=== PATIENT | male | born 1935 | race Caucasian/White ===

== ENCOUNTER 2018-12-01 19:11 | Inpatient (IN) | payer MEDICARE ==
[~2018-12-01] VITALS: Ht 172.7 cm; Wt 74.5 kg
[2018-12-01 20:07] LABS: Hematocrit 28.9 % (37.0-53.0); Hemoglobin 9.2 g/dL (13.5-17.5); Mean Corpuscular HGB 35.8 pg (26.0-34.0); Mean Corpuscular HGB Conc 31.8 g/dL (31.5-36.5); Mean Corpuscular Volume 113 fL (80-100); Mean Platelet Volume 9.7 fL (9.1-12.4); Platelet Count 176 K/mm3 (150-400); RDW Coefficient Variation 14.9 % (11.7-14.2); RDW Standard Deviation 61.6 fL (35.1-46.3); Red Blood Cell Count 2.57 M/mm3 (4.30-5.90); White Blood Cell Count 6.75 K/mm3 (4.00-11.30)
[2018-12-01] MEDS ORDERED: CEFD250S5 PO (20:24)
[2018-12-01] MEDS ORDERED: Nicoderm Cq1 EAC1 TD (20:25)
[2018-12-01 20:26] LABS: Alanine Aminotransfer (ALT/SGP 15 U/L (12-78); Albumin, Blood 1.5 g/dL (3.4-5.0); Albumin/Globulin Ratio 0.3 (0.8-1.8); Alk Phos 95 U/L (50-136); Anion Gap 14 mmol/L (6-16); Aspartate Aminotrans (AST/SGOT 13 U/L (12-37); Bilirubin, Total 0.5 mg/dL (0.1-1.0); Blood Urea Nitrogen 101 mg/dL (8-24); Bun/Creatinine Ratio 25.4 (12.0-20.0); CO2, Blood 17 mmol/L (21-32); Calcium, Blood 7.3 mg/dL (8.5-10.1); Chloride, Blood 113 mmol/L (98-108); Creatinine, Blood 3.98 mg/dL (0.60-1.20); Glomerular Filtration Rate 15 (60-); Glucose, Blood 88 mg/dL (70-99); Potassium, Blood 4.8 mmol/L (3.5-5.5); Sodium, Blood 144 mmol/L (136-145); Total Protein, Blood 6.5 g/dL (6.4-8.2); Troponin I <0.015 ng/mL (0.000-0.040)
[2018-12-01] MEDS ORDERED: MORPHINE SU2 MG/1 M1 IV (20:26)
[2018-12-01] MEDS ORDERED: VIT1CAPS12 PO (20:27)
[2018-12-01 20:38] LABS: BAND PERCENT MAN 15 % (0-8); BASOPHILS PERCENT MAN 0 % (0-2); EOSINOPHILS PERCENT MAN 0 % (0-6); LYMPHOCYTES ABSOLUTE MAN 0.74 K/mm3 (0.84-5.20); LYMPHOCYTES PERCENT MAN 11 % (21-46); MONOCYTES ABSOLUTE MAN 0.27 K/mm3 (0.16-1.47); MONOCYTES PERCENT MAN 4 % (4-13); MYELOCYTE ABSOLUTE MAN 0.06 K/mm3 (0.00-0.00); MYELOCYTE PERCENT MAN 1 % (0-0); NEUTROPHILS ABSOLUTE MAN 5.67 K/mm3 (1.96-9.15); SEG NEUTROPHILS PERCENT MAN 69 % (41-73); TOTAL CELLS COUNTED 100
--- NOTE | 2018-12-01 20:57 | NUR ---
Initial Visit: Palliative Care Consult for goals of care. Pt is A&Ox4 and reports generalized pain. Unable to give intensity or any specific location. FLACC score is 2/10. Pt's family present during visit. Son Elvis, Daughters Mary, and Whitney. Whitney reports that she is POA [phone]. Pt is hard of hearing and family answers most of questions during visit. Pt and family appear overwhelmed. Whitney explains some of the background. Pt decided to live with other family members in [place] and a few days ago she received a call stating Pt's health was declining. Pt's appetite had decreased, he was lethargic, and had a fall. Whitney reports driving down to [place] and Pt was admitted to local hospital. Family was told that Pt's heart and kidnies were failing and the hospital did not have a quarter supervisor or an echo to determine severity. Hospital offered for Pt to be transfered to hospital in [place] but the hospital there was full. Local hospital offered discharge with hospice and family accepted. Pt decided he wanted a second opinion and family drove Pt back home to [place] and to [facility]. Whitney reports having contact with Yari at [facility]. Family and Pt report they would like a full work up for a second opinion. Pt states that if his illness is not to severe then he would like to be treated. He also reports that if his illness has reached end stage then he will consider hospice. Plan: F/U with Pt and family for therapeutic visits. Also need to establish palliative and karnofsky scores, along with Pt's ADLs. Will establish further goals of care as needed.
[2018-12-01] MEDS ORDERED: ONDA4ODT SL (21:21)
[2018-12-01] MEDS ORDERED: Chloraseptic177 ML PO (21:21)
[2018-12-01 21:43] LABS: Percent Saturation 38.8 % (20.0-50.0)
[2018-12-01 21:49] LABS: Magnesium, Blood 2.9 mg/dL (1.6-2.4)
[2018-12-01 22:45] LABS: Phosphorus, Blood 7.2 mg/dL (2.5-4.9)
[2018-12-01 23:02] LABS: Source, Urine Urostomy Bag
[2018-12-01 23:05] LABS: Bilirubin, Urine Neg (Neg); Blood, Urine 5+ (Neg); Glucose Qualitative, Urine Neg (Neg); Ketones, Urine Neg (Neg); Leukocyte Esterase, Urine 2+ (Neg); Nitrite, Urine Neg (Neg); Protein, Urine Neg (Neg); Urobilinogen, Urine NORM (Normal)
[2018-12-01 23:18] LABS: Appearance, Urine Hazy (Clear); Color, Urine Yellow (P-Yellow)
[2018-12-01 23:19] LABS: Amorphous Light (0-Heavy); Bacteria Few /hpf; Mucus Light (0-Heavy); Red Blood Cells, Urine 25-50 /hpf (0-2); Squamous Epithelial Cells Few /hpf (Few)
[2018-12-02 00:12] LABS: Source, Urine Catheter
[2018-12-02 00:19] LABS: Bilirubin, Urine Neg (Neg); Blood, Urine 4+ (Neg); Glucose Qualitative, Urine Neg (Neg); Ketones, Urine Neg (Neg); Leukocyte Esterase, Urine 1+ (Neg); Nitrite, Urine Neg (Neg); Protein, Urine Neg (Neg); Urobilinogen, Urine NORM (Normal)
[2018-12-02 00:28] LABS: Amorphous Light (0-Heavy); Appearance, Urine Hazy (Clear); Bacteria Few /hpf; Color, Urine Pale Yellow (P-Yellow); Granular Casts 25-50 /lpf (0); Squamous Epithelial Cells Not Seen /hpf (Few)
[2018-12-02 05:03] LABS: Hematocrit 35.5 % (37.0-53.0); Hemoglobin 11.3 g/dL (13.5-17.5); Mean Corpuscular HGB 35.2 pg (26.0-34.0); Mean Corpuscular HGB Conc 31.8 g/dL (31.5-36.5); Mean Corpuscular Volume 111 fL (80-100); Mean Platelet Volume 9.5 fL (9.1-12.4); Platelet Count 136 K/mm3 (150-400); RDW Coefficient Variation 14.8 % (11.7-14.2); RDW Standard Deviation 60.4 fL (35.1-46.3); Red Blood Cell Count 3.21 M/mm3 (4.30-5.90); White Blood Cell Count 4.75 K/mm3 (4.00-11.30)
[2018-12-02 05:40] LABS: Albumin, Blood 1.5 g/dL (3.4-5.0); Anion Gap 13 mmol/L (6-16); Blood Urea Nitrogen 99 mg/dL (8-24); Bun/Creatinine Ratio 24.3 (12.0-20.0); CO2, Blood 17 mmol/L (21-32); CPK Creatine Kinase 58 U/L (39-308); Calcium, Blood 7.3 mg/dL (8.5-10.1); Chloride, Blood 114 mmol/L (98-108); Creatinine, Blood 4.08 mg/dL (0.60-1.20); Glomerular Filtration Rate 15 (60-); Glucose, Blood 114 mg/dL (70-99); Magnesium, Blood 3.1 mg/dL (1.6-2.4); Phosphorus, Blood 7.4 mg/dL (2.5-4.9); Potassium, Blood 4.5 mmol/L (3.5-5.5); Sodium, Blood 144 mmol/L (136-145); Uric Acid, Blood 14.4 mg/dL (3.5-7.2)
--- NOTE | 2018-12-02 07:14 | NUR ---
SHIFT SUMMARY PT ADMITTED LAST NIGHT FOR CHF EXACERBATION. HE HAD BEEN DISCHARGED ON HOSPICE FROM A HOSPITAL IN [place] WHERE HE HAD BEEN DEALING WITH THE CHF, COMMUNITY ACQUIRED PNEUMONIA, AND SHARON, DISCHARGED THE MORNING OF THE AND ADMITTED HERE THE NIGHT OF THE FOR A SECOND OPINION, PER THE FAMILY. THEY WANT TO FIND OUT IF THE CHF AND SHARON ARE REVERSIBLE AT THIS POINT. PALLIATIVE CARE AND COOLEY CONSULTED IN ED. PT IS GENERALLY ORIENTED, SLEEPS EASILY BETWEEN CARES. FAMILY PRESENT IN THE ROOM. PT IS VERY WEAK, 2 ASSIST FOR POSITIONING. 24 HOUR URINE STARTED 12/02 AT 0020, WILL BE FINISHED 12/03 AT 0020. HIS INTAKE HAS BEEN POOR. FAMILY STATES HE HAS HAD VERY LITTLE INTAKE FOR ABOUT 5 DAYS, AND ALSO HAS NOT HAD A BM IN 4 DAYS OR SO. REPORT PASSED TO ONCOMING SHIFT. WILL CTM UNTIL PASS TO NEXT SHIFT.
--- NOTE | 2018-12-02 17:45 | NUR ---
SUMMARY 24 HOUR URINE COLLECTION CONTINUES. PATIENT HAS DENIED NEED FOR PAIN MEDICATION THROUGHOUT SHIFT. PATIENT REPORTS OCC. "LUNG PAIN " WITH DEEP BREATHING. PATIENT WITH MINIMAL PO INTAKE. OCC LOOSE SOUNDING COUGH-OATIENT DOES NOT COUGH UP SECRETIONS. FAMILY MEMBERS AT BEDSIDE MUCH OF SHIFT HANDY DEAN RN
--- NOTE | 2018-12-02 21:47 | NUR ---
IS SITTING 90 DEG IN BED.PILLOWS BEHIND TO SIT HIM FORWARD LIKE CHAIR.OFFERED PM CARE ITEMS AND TO ASSIST.
--- NOTE | 2018-12-02 22:30 | NUR ---
FRESH ICE ADDED FOR 24 HR URINE.STAYED ON ICE SINCE START OF MY SHIFT.
--- NOTE | 2018-12-03 00:35 | NUR ---
24 HOUR URINE DONE. SENT TO LAB WITH CHARGE NURSE ASSIST TO MAKE SURE DONE CORRECTLY.LAB REVIEWED AND APPROVED ALL LABLES AND ICE IS CORRECT FOR 24 HOUR URINE.
[2018-12-03 01:30] LABS: Protein, Urine Quantitative 16.8 mg/dL (0.0-11.9)
--- NOTE | 2018-12-03 04:18 | NUR ---
SHIFT SUMMARY: PT SLEEPING MOST OF SHIFT. 24 HOUR URINE COLLECTION COMPLETE. PT DECONDITIONED WITH POOR PO INTAKE. ON PUREE DIET. ASPIRATION PRECAUTIONS IN PLACE. PT REMAINED SITTING UP IN BED T/O SHIFT. NORMAL SINUS WITH PAC'S PER AIR POLLUTION CONTROL ENGINEER. COURSE LUNG SOUNDS HEARD UPON AUSCULATION. PT C/O OCCASIONAL PAIN WHEN TAKING DEEP BREATHS. CONTINUES TO HAVE 4+ PITTING EDEMA TO BLE. COMPRESSION STOCKINGS ON. 2 ASSIST FOR REPOSITIONING.
[2018-12-03 04:31] LABS: Hematocrit 30.2 % (37.0-53.0); Hemoglobin 9.6 g/dL (13.5-17.5)
[2018-12-03 04:54] LABS: Albumin, Blood 1.5 g/dL (3.4-5.0); Anion Gap 13 mmol/L (6-16); Blood Urea Nitrogen 119 mg/dL (8-24); Bun/Creatinine Ratio 27.4 (12.0-20.0); CO2, Blood 20 mmol/L (21-32); Calcium, Blood 7.5 mg/dL (8.5-10.1); Chloride, Blood 116 mmol/L (98-108); Creatinine, Blood 4.35 mg/dL (0.60-1.20); Glomerular Filtration Rate 14 (60-); Glucose, Blood 137 mg/dL (70-99); Magnesium, Blood 3.1 mg/dL (1.6-2.4); Potassium, Blood 5.1 mmol/L (3.5-5.5); Sodium, Blood 149 mmol/L (136-145)
[2018-12-03 05:03] LABS: Phosphorus, Blood 8.6 mg/dL (2.5-4.9)
--- NOTE | 2018-12-03 17:08 | NUR ---
SHIFT SUMMART PT AWAKE, CONFUSED, LEVELOCK, VISION IMPAIRMENT, DNR BAND RUE, TELE SB @ 53, DECONDITIONED, ASPIRATION PRECAUTIONS, PUREED DIET, LOW PO INTAKE, SPOONFULS OF WATER GIVEN T/O SHIFT. FAMILY AT BEDSIDE T/O SHIFT. STAND/TRANSFER, 2 PP MOD/MAX ASSIST. EDEMA ZEYAD FEET 4+, TEDS ON. NAUSEA TX X1 IN AM. MEDS CRUSHED IN APPLESAUCE. WCTM & TX PER EMAR UNTIL REPORT GIVEN TO ONCOMING SHANON RN.
[2018-12-04 04:48] LABS: BASOPHILS ABSOLUTE AUTO 0.01 K/mm3 (0.00-0.23); BASOPHILS PERCENT AUTO 0 % (0-2); EOSINOPHILS PERCENT AUTO 0 % (0-6); Hematocrit 32.2 % (37.0-53.0); Hemoglobin 10.2 g/dL (13.5-17.5); Mean Corpuscular HGB 34.6 pg (26.0-34.0); Mean Corpuscular HGB Conc 31.7 g/dL (31.5-36.5); Mean Corpuscular Volume 109 fL (80-100); Mean Platelet Volume 10.4 fL (9.1-12.4); Platelet Count 115 K/mm3 (150-400); RDW Coefficient Variation 14.6 % (11.7-14.2); RDW Standard Deviation 58.5 fL (35.1-46.3); Red Blood Cell Count 2.95 M/mm3 (4.30-5.90); White Blood Cell Count 4.88 K/mm3 (4.00-11.30)
[2018-12-04 05:11] LABS: Albumin, Blood 1.7 g/dL (3.4-5.0); Anion Gap 14 mmol/L (6-16); Blood Urea Nitrogen 139 mg/dL (8-24); CO2, Blood 19 mmol/L (21-32); Calcium, Blood 7.5 mg/dL (8.5-10.1); Chloride, Blood 116 mmol/L (98-108); Creatinine, Blood 4.64 mg/dL (0.60-1.20); Glomerular Filtration Rate 13 (60-); Glucose, Blood 138 mg/dL (70-99); Magnesium, Blood 3.5 mg/dL (1.6-2.4); Potassium, Blood 5.2 mmol/L (3.5-5.5); Sodium, Blood 149 mmol/L (136-145)
[2018-12-04 05:15] LABS: IMMATURE GRAN ABSOLUTE AUTO 0.06 K/mm3 (0.00-0.10); IMMATURE GRAN PERCENT AUTO 1 % (0-1); LYMPHOCYTES ABSOLUTE AUTO 0.67 K/mm3 (0.84-5.20); LYMPHOCYTES PERCENT AUTO 14 % (21-46); MONOCYTES ABSOLUTE AUTO 0.06 K/mm3 (0.16-1.47); MONOCYTES PERCENT AUTO 1 % (4-13); NEUTROPHILS ABSOLUTE AUTO 4.08 K/mm3 (1.96-9.15); NEUTROPHILS PERCENT AUTO 84 % (41-73)
--- NOTE | 2018-12-04 05:21 | NUR ---
SHIFT SUMMARY: PT RESTING MOST OF SHIFT. WHILE AWAKE, PT IS CONFUSED AND HOLLERS OUT AT TIMES. PT IS AWARE OF SURROUNDINGS AND FAMILY. TELE SHOWS SINUS BETHANY IN LOW 50'S. PT IS VOIDING IN URINAL. INCONTINENT ONCE. PT GIVEN A BEDBATH AND LINENS WERE CHANGED. ATTENDS IN PLACE. MEPILEX PLACED TO COCCYX WHERE A PRESSURE ULCER WAS NOTED. PHOTOS TAKEN. PUREED DIET, SWALLOWING PILLS CRUSHED IN PUDDING. HOB ELEVATED. NO N/V.
[2018-12-04 05:44] LABS: Phosphorus, Blood 8.7 mg/dL (2.5-4.9)
--- NOTE | 2018-12-04 07:36 | NUR ---
RECIEVED A CRITICAL PHOSPHORUS LAB VALUE OF 8.6. DR COOLEY NOTIFIED OF CRITICAL LAB AND OTHER LAB VALUES. DISCUSSED KIDNEY FUNCTION AND TOTAL URINE OUTPUT THROUGHOUT NIGHT. NEW ORDER FOR SURGICAL CONSULT FOR PERMCATH FOR HEMODIALYSIS. RN NOTIFIED DR MARION OF CONSULT AT APPROX 0748. FAMILY IS AWARE.
--- NOTE | 2018-12-04 17:57 | NUR ---
SHIFT SUMMARY PT A&OX2, CONFUSED, VSS, [place], DECREASED VISION. TELE DC'D, PT STILL SINUS BETHANY @ 50, HOSPITALIST AWARE. AWAITING PERMACATH INSERTION, PLAN IS FOR ICU MELT HOUSE CENTRIFUGAL OPERATOR TO PLACE TODAY; DIALYSIS IS SCHEDULED FOR TOMORROW AT 0900. PURPLE DNR BAND R WRIST. DYSPHAGIA PREC IN PLACE. MEDS CRUSHED, ADDED TO AMPHOJEL OR JELLO, PT DOES NOT LIKE APPLESAUCE. GERARD PO TODAY, DENIES N&V, SMALL BITES OF MECH SOFT AND TEASPOONS OF WATER/GRAPE JUICE GIVEN T/O SHIFT, ASSISTED AND ENC PT TO EAT BITES. VOIDING IN URINAL, ATTENDS ON, BUMEX GIVEN. WILL CTM & TX PER EMAR UNTIL REPORT GIVEN TO ONCOMING SHANON RN.
--- NOTE | 2018-12-04 19:18 | NUR ---
ASSISTED DR. GONZALEZ WITH DIALYSIS CATH IN ROOM 210. TIME OUT 1900. PLACED IN RIGHT IJ USING STERILE TECHNIQUE. TOLERATED WELL.
--- NOTE | 2018-12-05 03:42 | NUR ---
SHIFT SUMMARY: NEW DIALYSIS CATHETER PLACED IN BEGINNING OF SHIFT AT APPROX 1850. PT TOLERATED PROCEDURE WELL. PERMCATH FLUSHED WITH SODIUM CITRATE BY ICU MOTORBOAT MECHANIC INBOARD/OUTBOARDNORMA. PT REPOSITIONED T/O SHIFT. ATTENDS CHANGED PRN. MOD 2 PERSON ASSIST. PT CONFUSED AND VERY FATIGUED T/O NIGHT. PLAN IS FOR PT TO RECIEVE FIRST DIALYSIS TX THIS AM AT APPROX 0900.
[2018-12-05 04:43] LABS: Hematocrit 34.7 % (37.0-53.0)
[2018-12-05 05:22] LABS: Blood Urea Nitrogen 163 mg/dL (8-24); Bun/Creatinine Ratio 33.1 (12.0-20.0); Phosphorus, Blood 9.5 mg/dL (2.5-4.9)
[2018-12-05 05:30] LABS: Albumin, Blood 1.9 g/dL (3.4-5.0); Anion Gap 14 mmol/L (6-16); CO2, Blood 21 mmol/L (21-32); Calcium, Blood 7.4 mg/dL (8.5-10.1); Chloride, Blood 116 mmol/L (98-108); Creatinine, Blood 4.92 mg/dL (0.60-1.20); Glomerular Filtration Rate 12 (60-); Glucose, Blood 132 mg/dL (70-99); Magnesium, Blood 3.4 mg/dL (1.6-2.4); Potassium, Blood 5.5 mmol/L (3.5-5.5); Sodium, Blood 151 mmol/L (136-145)
[2018-12-05 07:08] LABS: ANTIGLOMERULAR BM AB 5 units (0-20)
--- NOTE | 2018-12-05 10:51 | NUR ---
DIALYSIS PT'S FAMILY WANTS TO WAIT 3 DIALYSIS TREATMENTS BEFORE DECIDING ON GETTING A PERMA CATH PLACED.
--- NOTE | 2018-12-05 11:15 | NUR ---
HD nurse, Gurwinder, requested that PC nurse visit with pt's family in the dialysis treatment room. Pt is currently sleeping and receiving dialysis at this time. Whitney reports he was discharged from a [facility] on hospice but on the way here he told his family that wanted to "get better." Jacques has five children, Whitney, one of his daughters, is his POA. Whitney is requesting that Jacques receive three days of HD. Her hope is that HD will allow Jacques to be more alert and oriented so that he can make the decision for himself whether or not he would like to have manager terminal dialysis. Whitney reports several family members have had renal issues and were cared for by hospice at EOL. Whitney is very clear that she does not want a permanent dialysis catheter placed at this time. Whitney states that Jacques's health has declined rapidly in the past few days. She reports that his oral intake has been very limited and that he has had trouble with nausea and difficulty swallowing. Explained decreased nutrition requirements when someone nears EOL. Family states they are aware that the HD may not help and Whitney states they will make a decision for Jacques if he is unable to after 3 days of HD. Whitney reports Dr. Danielle told the family that there was a small chance 25-30% per her report that HD would allow pt's kidneys to start functioning on their own again. Family members at bedside are hopeful for improvement but state that if temporary HD doesn't make a difference they are open to hospice care. Pamphlets given to pt's family on coping with the stresses of dialysis and considering comfort care. PC will continue to follow pt and family over the next few days.
--- NOTE | 2018-12-05 17:54 | NUR ---
SUMMARY PT IS VERY TIRED TODAY, REFUSING MEDICATIONS, FOOD AND WATER. PT WAS TAKEN TO DIALYSIS THIS AM. PALLIATAIVE CARE SPOKE WITH FAMILY REGARDING CARE. FAMILY WISHES TO TRY DIALYSIS USING HEMOCATH X3 DAYS BEFOR PLACEMENT OF PERMACATH TO SEE IF HIS CONDITION IMPROVES. PT IS NOT ORIENTED TO HIS SURROUNDINGS AND IS UNAWARE OF WHAT IS HAPPENING, HE EXPRESSES FRUSTRATION AND FALLS ASLEEP QUICKLY. FREQUENT ORAL CARE, ATTENDS CHANGES, AND Q2 TURNS PROVIDED. FREQUENT ROUNDING DONE DUE TO PT NOT BEING ABLT TO CALL FOR ASSISTANCE PRN. CALL LIGHT IS IN REACH.
--- NOTE | 2018-12-06 04:32 | NUR ---
NO SIG CHANGES DURING NIGHT. DID TAKE ORAL MEDICATED IN PUDDING AND TOLERATED WELL. REPOSITIONED FREQUENTLY T/O SHIFT. PLAN FOR DIALYSIS AGAIN TODAY. DID ATTEMPT TO SEND PROTEIN UR. LAB STATES WAS ORDERED FOR 24H, HOWEVER PT IS INCONTINENT AT TIMES. WILL PASS THIS ALONG IN REPORT TO UPDATE DR. COOLEY. CALL LIGHT IN REACH AND BED ALARM ON FOR SAFETY.
[2018-12-06 05:52] LABS: Hematocrit 31.9 % (37.0-53.0); Hemoglobin 10.4 g/dL (13.5-17.5)
[2018-12-06 05:56] LABS: HBSAG SCREEN Negative (Negative); HEP A AB, IGM Negative (Negative); HEP B CORE AB, IGM Negative (Negative); HEP C VIRUS AB <0.1 (0.0-0.9)
[2018-12-06 06:13] LABS: Albumin, Blood 1.8 g/dL (3.4-5.0); Anion Gap 7 mmol/L (6-16); Blood Urea Nitrogen 103 mg/dL (8-24); Bun/Creatinine Ratio 29.9 (12.0-20.0); CO2, Blood 29 mmol/L (21-32); Calcium, Blood 6.9 mg/dL (8.5-10.1); Chloride, Blood 109 mmol/L (98-108); Creatinine, Blood 3.44 mg/dL (0.60-1.20); Glomerular Filtration Rate 18 (60-); Glucose, Blood 94 mg/dL (70-99); Magnesium, Blood 2.6 mg/dL (1.6-2.4); Potassium, Blood 4.3 mmol/L (3.5-5.5); Sodium, Blood 145 mmol/L (136-145)
--- NOTE | 2018-12-06 15:00 | NUR ---
TRANSFER OF CARE PT TRANSFERRED TO ROOM 339. PT IS AWAKE, VSS. REPORT GIVEN TO ANA ROSA. FAMILY NOTIFIED AND IS AT THE BEDSIDE. ALL BELONGINGS AND MEDICATIONS WERE SENT WITH THE PT.
[2018-12-06 15:09] LABS: A/G RATIO 0.5 (0.7-1.7); ALBUMIN 1.8 g/dL (2.9-4.4); ALPHA-1-GLOBULIN 0.5 g/dL (0.0-0.4); ALPHA-2-GLOBULIN 0.8 g/dL (0.4-1.0); BETA GLOBULIN 0.9 g/dL (0.7-1.3); GAMMA GLOBULIN 2.2 g/dL (0.4-1.8); GLOBULIN, TOTAL 4.4 g/dL (2.2-3.9); IMMUNOGLOBULIN A, QN, SERUM 781 mg/dL (61-437); IMMUNOGLOBULIN G, QN, SERUM 1776 mg/dL (700-1600); IMMUNOGLOBULIN M, QN, SERUM 89 mg/dL (15-143); M-SPIKE Not Observed g/dL (Not Observed); PROTEIN, TOTAL, SERUM 6.2 g/dL (6.0-8.5)
--- NOTE | 2018-12-06 15:29 | NUR ---
RECEIVED PATIENT FROM SURGICAL FLOOR W/REPORT FROM CHRISTINE ROSA. PATIENT ORIENTED TO ROOM.USES HEAD MOVEMENTS TO ANSWER QUESTIONS. RT JUGULAR CATHETER FOR DIALYSIS. LT A/C IV. LUNGS WHEEZEY UPPER, DIM LOWER. PALE ROSARIO IN COLOR. BL FEET EDEMA +2 TO +3. SHAYNE SPEAR ON. 2ND DAY OF DIALYSIS TODAY. HO-CHUNK. MULTIPLE RELATIVES IN ROOM. WILL CONTINUE TO MONITOR.
--- NOTE | 2018-12-06 18:13 | NUR ---
PATIENT ALERT. SEE EARLIER NOTE. COLOR NOT PALE ROSARIO. DOES RESPOND WITH ONE TO THREE WORD SENTENCES. HAS SOME OPEN SORES BUTTOCK. WILL USE CREAM AND MEPILEX. POOR APPETITE AND PER RELATIVES PATIENT HAS HAD POOR APPETITE FOR 8 MONTHS AND HAS BEEN "JUST SITTING ON RECLINER" FOR EIGHT MONTHS. WILL CONTINUE TO MONITOR.
[2018-12-07 04:12] LABS: Stool Occult Blood Guaiac 1 Neg (Neg); Stool Occult Blood Guaiac 2 Pos (Neg)
--- NOTE | 2018-12-07 05:03 | NUR ---
VSS, AFEBRILE, A/O TO SELF AND FAMILY, PRAIRIE BAND, INCONT, FRIABLE SKIN ON COCCYX COVERED BY MEPLEX, VERY POOR APPETITE, FAMILY AT THE BEDSIDE MOST OF THE TIME, PT SLEPT OVERNOC. NO COMPLAINTS.
[2018-12-07 05:27] LABS: Hematocrit 32.3 % (37.0-53.0); Hemoglobin 10.7 g/dL (13.5-17.5)
[2018-12-07 05:45] LABS: Anion Gap 8 mmol/L (6-16); Blood Urea Nitrogen 64 mg/dL (8-24); Bun/Creatinine Ratio 29.1 (12.0-20.0); CO2, Blood 31 mmol/L (21-32); Calcium, Blood 7.1 mg/dL (8.5-10.1); Chloride, Blood 107 mmol/L (98-108); Glomerular Filtration Rate 31 (60-); Glucose, Blood 93 mg/dL (70-99); Magnesium, Blood 2.3 mg/dL (1.6-2.4); Phosphorus, Blood 5.3 mg/dL (2.5-4.9); Potassium, Blood 4.1 mmol/L (3.5-5.5); Sodium, Blood 146 mmol/L (136-145)
[2018-12-07 06:04] LABS: Stool Occult Blood Guaiac 1 Neg (Neg)
--- NOTE | 2018-12-07 13:22 | NUR ---
BACK FROM DIALYSIS
--- NOTE | 2018-12-07 15:10 | NUR ---
PATIENT STILL SLEEPING POST DIALYSIS. APPEARS COMFORTABLE. RELATIVES IN ROOM. ADVISED RUNNING ABOUT 2 HOURS BEHIND AND MAY NOT BE IN TONIGHT. ADVISED WE WILL MAKE PATIENT NPO AFTER MIDNITE IN ANTICIPATION OF PERMACATH PLACEMENT.
--- NOTE | 2018-12-07 16:13 | NUR ---
Ethics consult order processed. Case conference with Palliative Care Nurse Brandi Mederos facilitated. Chart details and patient history reviewed. Concerns were recently voiced concerning a disparity between the patients previously expressed treatment wishes, and the medical course of therapy as directed by the principals family. This primarily revolved around the question of whether or not the principal would be amenable to renal management via dialysis if his cognitive faculties were intact and he could express his clinical preferences. Upon discussing the case and auditing the EMR it was discovered that this case has largely resolved itself due to the fact that the patient is reported to have recovered sufficient capacity to manage the decision himself. Dr Shahid clinical note intimates that Jacques has agreed to undergo permacath placement and proceed with hemodialysis. My recommendation would be for the Attending, the RN or a Palliative Care Nurse to follow up and provide advance directive education to the patient while he is lucid and have him complete and file a POLST so as to avoid future confusion. Thank you for this consult. Vasu Mac DMin
--- NOTE | 2018-12-07 19:26 | NUR ---
VSS, AFEBRILE, A/O TO SELF AND FAMILY, PT DISPLAYS A TINY SMEAR OF BLOOD FROM HIS PENIS IN HIS BRIEF. THIS BLOOD WAS DRIED, AND NO FURTHER BLEEDING WAS NOTED. PT DENIES PAIN/DISCOMFORT AT THIS TIME. FAMILY WAS CONCERNED BUT THERE APPEARS TO BE NO FURTHER BLEEDING AT THIS TIME. WILL CONTINUE TO MONITOR.
--- NOTE | 2018-12-08 04:54 | NUR ---
SAP ABAP PROGRAMMER SUMMARY NO ACUTE CHANGES THIS SHIFT. PT AAOX3, PLEASANT AND COOPERATIVE WITH CARE. PT ABLE TO HELP A LOT WITH TURNS AND CHANGES. PT STILL HAVING DARK BROWN LIQUID STOOL. INCONTINENT OF BOWEL AND BLADDER. NPO SINCE MIDNIGHT DUE TO PENDING PLACEMENT OF PERMACATH LATER TODAY. ASSISTED PT WITH MOUTH SWABS ON OCCASION. PT DENIES PAIN, SOB, N/V. VSS, WILL CONTINUE TO MONITOR.
[2018-12-08 05:27] LABS: Hematocrit 31.7 % (37.0-53.0); Hemoglobin 10.7 g/dL (13.5-17.5)
[2018-12-08 05:53] LABS: Anion Gap 11 mmol/L (6-16); Blood Urea Nitrogen 40 mg/dL (8-24); Bun/Creatinine Ratio 22.1 (12.0-20.0); CO2, Blood 29 mmol/L (21-32); Calcium, Blood 7.1 mg/dL (8.5-10.1); Chloride, Blood 100 mmol/L (98-108); Creatinine, Blood 1.81 mg/dL (0.60-1.20); Glomerular Filtration Rate 38 (60-); Glucose, Blood 88 mg/dL (70-99); Magnesium, Blood 2.1 mg/dL (1.6-2.4); Phosphorus, Blood 4.6 mg/dL (2.5-4.9); Potassium, Blood 3.4 mmol/L (3.5-5.5); Sodium, Blood 140 mmol/L (136-145)
--- NOTE | 2018-12-08 08:18 | NUR ---
COREG GIVEN THIS AM WITH A SPOONFUL OF HONEY THICK LEMON WATER.
[2018-12-08 12:27] LABS: ANA DIRECT Negative (Negative); ANTIMYELOPEROXIDASE (MPO) ABS <9.0 U/mL (0.0-9.0); ANTIPROTEINASE 3 (PR-3) ABS <3.5 U/mL (0.0-3.5); ATYPICAL PANCA <1:20 titer (Neg:<1:20); CYTOPLASMIC (C-ANCA) <1:20 titer (Neg:<1:20); PERINUCLEAR (P-ANCA) <1:20 titer (Neg:<1:20)
--- NOTE | 2018-12-08 19:09 | NUR ---
SHIFT SUMMARY PT A&Ox3. CALM AND COOPERATIVE WITH CARE. PT RESTING IN BED FOR MAJORITY OF SHIFT, REPOSITIONED FOR COMFORT AND UP IN CHIAR THIS AM. PT REPORTS PAIN THIS EVEN IN PERMACATH SITE. PT DENIES SOB AND N/V. PT HAD PERMACATH PLACED THIS AFTERNOON WITH DR CAREY AND RIGHT IJ REMOVED IN FUEL EFFICIENT AIRCRAFT DESIGNER. PERMACATH AND IJ SITE SMALL OOZING SANGUINEOUS FLUID. PRESSURE HELD ON IJ SITE FOR 5 MIN X2. PT RECEIVING IV ANTIBITICS. NO DIALYSIS TODAY. VSS, POST OP VSS. HELD EVENING MEDICATIONS DUE TO INCREASED ASP RISK. NO OTHER CHANGES NOTED DURING SHIFT. REPORT GIVEN TO ONCOMING RN.
[2018-12-09 05:01] LABS: Hematocrit 30.5 % (37.0-53.0); Hemoglobin 10.1 g/dL (13.5-17.5)
[2018-12-09 05:18] LABS: Anion Gap 11 mmol/L (6-16); Blood Urea Nitrogen 60 mg/dL (8-24); Bun/Creatinine Ratio 25.8 (12.0-20.0); CO2, Blood 28 mmol/L (21-32); Calcium, Blood 7.2 mg/dL (8.5-10.1); Chloride, Blood 101 mmol/L (98-108); Creatinine, Blood 2.33 mg/dL (0.60-1.20); Glomerular Filtration Rate 29 (60-); Glucose, Blood 95 mg/dL (70-99); Magnesium, Blood 2.3 mg/dL (1.6-2.4); Potassium, Blood 3.3 mmol/L (3.5-5.5); Sodium, Blood 140 mmol/L (136-145)
--- NOTE | 2018-12-09 07:13 | NUR ---
NERVE SPECIALIST SUMMARY PT AAOX4 AND PLEASANT TONIGHT. PERMACATH PLACED DURING DAY SHIFT AND OLD JUGULAR CATH REMOVED. BOTH SITES WEEPING SOME BLOOD AT START OF SHIFT, REINFORCED BOTH WITH PRESSURE DRESSINGS WHICH STOPPED BLEEDING. PT TOLERATING PO INTAKE VERY WELL AND REALLY ENJOYS CHOCOLATE ENSURE. PT VOIDED ONCE AT START OF SHIFT AND NOTHING FOR REST OF SHIFT. BLADDER SCAN 560 ML, RECIEVED ORDER FROM DR COOLEY TO STRAIGHT CATH. GOT 700 ML OUT. GAVE PT TYLENOL X1 FOR DISCOMFORT FROM CATH REMOVAL SITE. POST OP VITALS STABLE, REPORT GIVEN TO DAY RN.
--- NOTE | 2018-12-09 10:10 | NUR ---
Attempted to visit pt in his room this morning. Nursing reports pt is down in the dialysis unit currently getting HD. Visited with pt in the dialysis unit. He is awake, but appears to be fatigued. He c/o a dull ache to his back and to the area around his perm-a-cath that was placed yesterday. Pt repositioned in bed with two staff assist. He reports back discomfort is less after position changed. Will attempt to visit with pt and his family later this afternoon after HD. No family is currently visiting with him, however nursing reports that the family plans to return later today.
[2018-12-09 14:07] LABS: M-SPIKE, % Not Observed % (Not Observed); PROTEIN,TOTAL,URINE 6.4 mg/dL (Not Estab.)
--- NOTE | 2018-12-09 15:42 | NUR ---
CALLED DR. COOLEY ABOUT PATIENTS LOW BLOOD PRESSURE. HE ORDERED A 500 ML FLUID BOLUS AND REQUESTS A CALL BACK IN ONE HOUR. WILL REASSESS AFTER FLUIDS ARE RUN.
--- NOTE | 2018-12-09 18:32 | NUR ---
SHIFT SUMMARY PATIENT HAS NO ACUTE CONCERNS. WILL ASSESS FOR CHANGES. BLOOD PRESSURE WAS LOW DUE TO HIS DIALYSIS. NO CONCERNS ABOUT PATIENTS BLOOD PRESSURE AT THIS TIME. WILL LET HIM SPECIALISTS RN KNOW.
--- NOTE | 2018-12-10 03:23 | NUR ---
SHIFT SUMMARY PATIENT HAD NO ACUTE CHANGES OBSERVED THIS SHIFT. TAKES MEDICATION 1-2 AT A TIME IN PUDDING OR APPLE SAUCE. PIV REMAINS INTACT. VSS/AFEBRILE. DENIES PAIN, SOB, AND N/V. PATIENT VOIDING THIS SHIFT. AXO 3 AND TWO PERSON ASSIST TO BSC. PUSHING FLUIDS AND ENSURE. COOPERATIVE WITH CARE. CALL LIGHT IN REACH. WILL CONTINUE TO MONITOR UNTIL DAY SHIFT NURSE ASSUMES CARE.
[2018-12-10 05:38] LABS: Hematocrit 28.9 % (37.0-53.0); Hemoglobin 9.5 g/dL (13.5-17.5)
[2018-12-10 06:00] LABS: Anion Gap 4 mmol/L (6-16); Blood Urea Nitrogen 42 mg/dL (8-24); Bun/Creatinine Ratio 19.4 (12.0-20.0); CO2, Blood 32 mmol/L (21-32); Calcium, Blood 7.3 mg/dL (8.5-10.1); Chloride, Blood 105 mmol/L (98-108); Creatinine, Blood 2.17 mg/dL (0.60-1.20); Glomerular Filtration Rate 31 (60-); Glucose, Blood 108 mg/dL (70-99); Magnesium, Blood 2.1 mg/dL (1.6-2.4); Phosphorus, Blood 3.6 mg/dL (2.5-4.9); Potassium, Blood 3.5 mmol/L (3.5-5.5); Sodium, Blood 141 mmol/L (136-145)
[2018-12-10] MEDS ORDERED: ALLO100 PO (09:38)
[2018-12-10] MEDS ORDERED: Tylenol325 MG PO (09:38)
[2018-12-10] MEDS ORDERED: Aluminum H320 MG/5 M PO (09:40)
[2018-12-10] MEDS ORDERED: FAMO20 PO (09:43)
[2018-12-10] MEDS ORDERED: ALBU3IS INH (09:46)
[2018-12-10] MEDS ORDERED: MIDO5 PO (09:47)
[2018-12-10] MEDS ORDERED: TAMS.4ER PO (09:47)
--- NOTE | 2018-12-10 10:37 | NUR ---
PT DISCHARGED PT DISCHARGED AT 1035. PT IN STABLE CONDITION WITH VSS. REPORT CALLED TO NURSE MONTOYA AT . JAN STATED SHE HAD NO FURTHER QUESTIONS. NO CHANGES IN ASSESSMENT. PT PICKED UP BY EMS AND WILL BE TRANSFERED TO BY THEM. FAMILY FOLLOWING BEHIND.
== END 2018-12-10 10:35 | DRG 682 ==
LOC: ER 19:11 → SURS 21:42 → MEDS 12-06 15:05
PROVIDERS: Emergency Medicine; Hospitalist; Internal Medicine Nephrology; Nurse Practitioner Acute Care; ADMIT Internal Medicine
PROC: 05HM33Z Insertion of Infusion Device into Right Internal Jugular Vein, Percutaneous Approach (ICD-10-PCS; principal; 2018-12-04)
PROC: 5A1D70Z Performance of Urinary Filtration, Intermittent, Less than 6 Hours Per Day (ICD-10-PCS; 2018-12-04)
PROC: 5A1D70Z Performance of Urinary Filtration, Intermittent, Less than 6 Hours Per Day (ICD-10-PCS; 2018-12-04)
DX: N17.0 Acute kidney failure with tubular necrosis (principal); J18.9 Pneumonia, unspecified organism; G93.40 Encephalopathy, unspecified; E87.2 Acidosis; I13.2 Hypertensive heart and chronic kidney disease with heart failure and with stage 5 chronic kidney disease, or end stage renal disease; N39.0 Urinary tract infection, site not specified; E87.0 Hyperosmolality and hypernatremia; L89.152 Pressure ulcer of sacral region, stage 2; D63.1 Anemia in chronic kidney disease; J84.10 Pulmonary fibrosis, unspecified; R33.9 Retention of urine, unspecified; N18.6 End stage renal disease; Z99.2 Dependence on renal dialysis; I95.9 Hypotension, unspecified; I50.9 Heart failure, unspecified; R62.7 Adult failure to thrive; N40.1 Benign prostatic hyperplasia with lower urinary tract symptoms; Z87.891 Personal history of nicotine dependence; E88.09 Other disorders of plasma-protein metabolism, not elsewhere classified; Z66 Do not resuscitate; M10.9 Gout, unspecified; E87.79 Other fluid overload; E83.39 Other disorders of phosphorus metabolism; I48.91 Unspecified atrial fibrillation
CPT/HCPCS: 36415; 36556; 36558; 51701; 51702; 71045; 71046; 71250; 76770; 76937; 80048; 80053; 80069; 80074; 81001; 81050; 82272; 82533; 82550; 82607; 82728; 82746; 82784; 83516; 83520; 83540; 83550; 83735; 83880; 84100; 84132; 84145; 84156; 84165; 84166; 84484; 84550; 85014; 85018; 85025; 85027; 86038; 86256; 86317; 86334; 86335; 87086; 92526; 92610; 93005; 93010; 93306; 94640; 94760; 96374-59; 97110; 97162; 97530; 99152; 99153; 99285-25; C1750; C1752; C1769; G0103; J0696; J0881; J1644; J1650; J2250; J2405; J2930; J3010; J7040; J7050; J7509

== ENCOUNTER 2019-01-03 07:34 | Day surgery (SDC) | payer MEDICARE ==
[~2019-01-03 07:34] MED LIST: ALBU3IS INH; ALLO100 PO; Aluminum H320 MG/5 M PO; CEFD250S5 PO; Chloraseptic177 ML PO; FAMO20 PO; MIDO5 PO; MORPHINE SU2 MG/1 M1 IV; Nicoderm Cq1 EAC1 TD; ONDA4ODT SL; TAMS.4ER PO; Tylenol325 MG PO; VIT1CAPS12 PO
[2019-01-03] MEDS ORDERED: CETI5 PO (09:03)
[2019-01-03] MEDS ORDERED: GABA100 PO (09:05)
[2019-01-03] MEDS ORDERED: CALCIUM PETITE1 EACH PO (10:21)
[2019-01-03] MEDS ORDERED: LUTEIN-ZEAXANT1 EAC1 PO (10:22)
== END 2019-01-03 12:08 | disposition home or self-care (01) ==
LOC: ATC 07:34
DX: N18.9 Chronic kidney disease, unspecified (principal); D53.9 Nutritional anemia, unspecified; I50.9 Heart failure, unspecified; Z87.891 Personal history of nicotine dependence
CPT/HCPCS: 36415; 36430; 86850; 86900; 86901; 86923; J7050; P9016

== ENCOUNTER → 2019-01-18 | Outpatient (CLI) | payer MEDICARE ==
[~2019-01-18] MED LIST changes: +Albuterol2.5 MG/0.5 INH; +BUME2 PO; +CALCIUM PETITE1 EACH PO; +Coq-10100 MG PO; +GABA100 PO; +LUTEIN-ZEAXANT1 EAC1 PO; +Midodrine HCl10 MG PO; +ONDA4ODT MM; +ZYRTEC10 M2 PO
[2019-01-18 09:12] LABS: Bun/Creatinine Ratio 11.9 (12.0-20.0); Calcium, Blood 7.1 mg/dL (8.5-10.1); Creatinine, Blood 4.62 mg/dL (0.60-1.20)
== END | disposition home or self-care (01) ==
LOC: LAB DAV 08:56
PROVIDERS: Internal Medicine Nephrology
DX: N18.6 End stage renal disease (principal)
CPT/HCPCS: 80048

== ENCOUNTER 2019-01-20 09:51 | Inpatient (IN) | payer MEDICARE ==
[~2019-01-20] VITALS: Ht 172.7 cm; Wt 73.0 kg
[~2019-01-20 09:51] MED LIST changes: -Albuterol2.5 MG/0.5 INH; -BUME2 PO; -Coq-10100 MG PO; -Midodrine HCl10 MG PO; -ONDA4ODT MM
[2019-01-20 10:19] LABS: BASOPHILS ABSOLUTE AUTO 0.02 K/mm3 (0.00-0.23); BASOPHILS PERCENT AUTO 0 % (0-2); EOSINOPHILS ABSOLUTE AUTO 0.26 K/mm3 (0.00-0.68); EOSINOPHILS PERCENT AUTO 4 % (0-6); Hematocrit 25.8 % (37.0-53.0); Hemoglobin 8.1 g/dL (13.5-17.5); IMMATURE GRAN ABSOLUTE AUTO 0.05 K/mm3 (0.00-0.10); IMMATURE GRAN PERCENT AUTO 1 % (0-1); LYMPHOCYTES ABSOLUTE AUTO 1.31 K/mm3 (0.84-5.20); LYMPHOCYTES PERCENT AUTO 22 % (21-46); MONOCYTES ABSOLUTE AUTO 0.54 K/mm3 (0.16-1.47); MONOCYTES PERCENT AUTO 9 % (4-13); Mean Corpuscular HGB 34.5 pg (26.0-34.0); Mean Corpuscular HGB Conc 31.4 g/dL (31.5-36.5); Mean Corpuscular Volume 110 fL (80-100); Mean Platelet Volume 9.9 fL (9.1-12.4); NEUTROPHILS ABSOLUTE AUTO 3.82 K/mm3 (1.96-9.15); NEUTROPHILS PERCENT AUTO 64 % (41-73); Platelet Count 139 K/mm3 (150-400); RDW Coefficient Variation 15.9 % (11.7-14.2); RDW Standard Deviation 64.3 fL (35.1-46.3); Red Blood Cell Count 2.35 M/mm3 (4.30-5.90)
[2019-01-20 10:31] LABS: Albumin, Blood 1.6 g/dL (3.4-5.0); Albumin/Globulin Ratio 0.3 (0.8-1.8); Bilirubin, Total 0.5 mg/dL (0.1-1.0); Bun/Creatinine Ratio 7.2 (12.0-20.0); Calcium, Blood 7.5 mg/dL (8.5-10.1); Creatinine, Blood 4.87 mg/dL (0.60-1.20); Globulin, Blood 4.8 g/dL (2.2-4.0); Potassium, Blood 5.1 mmol/L (3.5-5.5); Total Protein, Blood 6.4 g/dL (6.4-8.2)
[2019-01-20 11:22] LABS: Bicarbonate Venous 31.9 mmol/L (24.0-30.0); PCO2 Venous 47.4 mmHg (38-42); PO2 Venous 186 mmHg (38-42); pH Blood Venous 7.45 (7.34-7.37)
[2019-01-20 12:26] LABS: Source, Urine Voided
[2019-01-20] MEDS ORDERED: Midodrine HCl10 MG PO (12:28)
[2019-01-20] MEDS ORDERED: ALLO100 PO (12:29)
[2019-01-20] MEDS ORDERED: BUME2 PO (12:29)
[2019-01-20] MEDS ORDERED: TAMS.4ER PO (12:30)
[2019-01-20 12:32] LABS: Appearance, Urine Clear (Clear); Bilirubin, Urine Neg (Neg); Blood, Urine 3+ (Neg); Color, Urine Amber (P-Yellow); Glucose Qualitative, Urine Neg (Neg); Ketones, Urine 2+ (Neg); Leukocyte Esterase, Urine 3+ (Neg); Nitrite, Urine Pos (Neg); Protein, Urine 2+ (Neg); Specific Gravity, Urine 1.025 (1.003-1.022); Urobilinogen, Urine 1+ (Normal)
[2019-01-20 12:43] LABS: White Blood Cells, Urine 25-50 /hpf (0-5)
[2019-01-20 12:47] LABS: Bacteria Many /hpf; Squamous Epithelial Cells Rare /hpf (Few)
[2019-01-20 12:48] LABS: Yeast/Fungi Urine Mod /hpf
--- NOTE | 2019-01-20 13:15 | NUR ---
ORDERS FOR HEMODIALYSIS PLACED AT 1215 WITH TIME OF TREATMENT AT 1315. WAIT TIME WILL COMMENCE AT 1345.
[2019-01-20] MEDS ORDERED: Albuterol2.5 MG/0.5 INH (16:05)
[2019-01-20] MEDS ORDERED: Coq-10100 MG PO (16:05)
[2019-01-20] MEDS ORDERED: ONDA4ODT MM (16:06)
--- NOTE | 2019-01-20 16:12 | NUR ---
PATIENT ARRIVED VIA GURNEY FROM ER TO MEDICAL FLOOR 306 AT 1510. 2 - 30 MIN UNITS WAIT TIME ASSESSED.
--- NOTE | 2019-01-20 19:28 | NUR ---
ADMIT NOTE PT AXO, EAGLE AND COOPERATIVE WITH CARE. ARRIVED TO ROOM VIA GURNEY. DIALYSIS BEGAN IMMEDIATELY AFTER PT ARRIVED TO ROOM. PRESSURE ULCER PRESENT ON ADMISSION, SEE PICTURES IN CHART. NEW IV PATENT AND INFUSING VANCO PER EMAR. REPORT GIVEN TO SPRING CLIPPER NURSE WHO WILL ASSUME CARE AT THIS TIME
[2019-01-21 04:26] LABS: Hematocrit 25.1 % (37.0-53.0); Hemoglobin 7.8 g/dL (13.5-17.5); Mean Corpuscular HGB 34.5 pg (26.0-34.0); Mean Corpuscular HGB Conc 31.1 g/dL (31.5-36.5); Mean Corpuscular Volume 111 fL (80-100); Mean Platelet Volume 9.9 fL (9.1-12.4); Platelet Count 113 K/mm3 (150-400); RDW Coefficient Variation 15.9 % (11.7-14.2); RDW Standard Deviation 65.3 fL (35.1-46.3); Red Blood Cell Count 2.26 M/mm3 (4.30-5.90); White Blood Cell Count 6.21 K/mm3 (4.00-11.30)
[2019-01-21 04:44] LABS: Alanine Aminotransfer (ALT/SGP 15 U/L (12-78); Albumin/Globulin Ratio 0.5 (0.8-1.8); Alk Phos 67 U/L (50-136); Anion Gap 6 mmol/L (6-16); Aspartate Aminotrans (AST/SGOT 18 U/L (12-37); Bilirubin, Total 0.6 mg/dL (0.1-1.0); Blood Urea Nitrogen 25 mg/dL (8-24); Bun/Creatinine Ratio 6.7 (12.0-20.0); CO2, Blood 33 mmol/L (21-32); Calcium, Blood 7.6 mg/dL (8.5-10.1); Chloride, Blood 103 mmol/L (98-108); Creatinine, Blood 3.73 mg/dL (0.60-1.20); Globulin, Blood 4.4 g/dL (2.2-4.0); Glomerular Filtration Rate 17 (60-); Glucose, Blood 107 mg/dL (70-99); Magnesium, Blood 2.1 mg/dL (1.6-2.4); Phosphorus, Blood 4.4 mg/dL (2.5-4.9); Potassium, Blood 4.5 mmol/L (3.5-5.5); Sodium, Blood 142 mmol/L (136-145); Total Protein, Blood 6.4 g/dL (6.4-8.2)
[2019-01-21 05:26] LABS: BAND PERCENT MAN 24 % (0-8); BASOPHILS ABSOLUTE MAN 0.12 K/mm3 (0.00-0.23); BASOPHILS PERCENT MAN 2 % (0-2); EOSINOPHILS PERCENT MAN 0 % (0-6); LYMPHOCYTES ABSOLUTE MAN 0.24 K/mm3 (0.84-5.20); LYMPHOCYTES PERCENT MAN 4 % (21-46); MONOCYTES ABSOLUTE MAN 0.12 K/mm3 (0.16-1.47); MONOCYTES PERCENT MAN 2 % (4-13); NEUTROPHILS ABSOLUTE MAN 5.71 K/mm3 (1.96-9.15); SEG NEUTROPHILS PERCENT MAN 68 % (41-73); TOTAL CELLS COUNTED 100
--- NOTE | 2019-01-21 10:30 | NUR ---
Met with Jacques during his dialysis treatment this morning. He is receiving 2 units of PRBCs during his dialysis treatment. He is having visual hallucinations. He is weak and shaky. He appears to be very fatigued. He drifts off to sleep easily. Will attempt to visit with pt and his family when they are visiting. He denies pain at this time.
--- NOTE | 2019-01-21 17:35 | NUR ---
SHIFT SUMMARY. A&OX2, OCCASSIONAL CONFUSION, BED AND CHAIR ALARM ON FOR SAFETY. PT HAS DENIED PAIN, SOB, N/V. POOR PO INTAKE. PT REFUSING MEAL SUPPLEMENTS. WITHDRAWN AFFECT. DIALYSIS TODAY WITH 2 UNITS PRBC INFUSED. FAMILY AT BEDSIDE INTERMITTENTLY DURING SHIFT. NO NEW CHANGES.
[2019-01-22 04:33] LABS: Hemoglobin 10.3 g/dL (13.5-17.5); Mean Corpuscular HGB 33.2 pg (26.0-34.0); Mean Corpuscular HGB Conc 32.2 g/dL (31.5-36.5); Mean Platelet Volume 9.9 fL (9.1-12.4); Platelet Count 92 K/mm3 (150-400); RDW Coefficient Variation 18.7 % (11.7-14.2); RDW Standard Deviation 71.6 fL (35.1-46.3); White Blood Cell Count 7.03 K/mm3 (4.00-11.30)
[2019-01-22 04:38] LABS: Mean Corpuscular Volume 103 fL (80-100)
[2019-01-22 04:48] LABS: Anion Gap 7 mmol/L (6-16); Blood Urea Nitrogen 26 mg/dL (8-24); Bun/Creatinine Ratio 7.3 (12.0-20.0); CO2, Blood 32 mmol/L (21-32); Calcium, Blood 7.5 mg/dL (8.5-10.1); Chloride, Blood 101 mmol/L (98-108); Creatinine, Blood 3.56 mg/dL (0.60-1.20); Glomerular Filtration Rate 18 (60-); Glucose, Blood 107 mg/dL (70-99); Magnesium, Blood 2.1 mg/dL (1.6-2.4); Phosphorus, Blood 2.9 mg/dL (2.5-4.9); Potassium, Blood 3.8 mmol/L (3.5-5.5); Sodium, Blood 140 mmol/L (136-145)
[2019-01-22 05:33] LABS: BAND PERCENT MAN 27 % (0-8); BASOPHILS PERCENT MAN 0 % (0-2); EOSINOPHILS ABSOLUTE MAN 0.07 K/mm3 (0.00-0.68); EOSINOPHILS PERCENT MAN 1 % (0-6); LYMPHOCYTES ABSOLUTE MAN 0.21 K/mm3 (0.84-5.20); LYMPHOCYTES PERCENT MAN 3 % (21-46); MONOCYTES ABSOLUTE MAN 0.28 K/mm3 (0.16-1.47); MONOCYTES PERCENT MAN 4 % (4-13); NEUTROPHILS ABSOLUTE MAN 6.46 K/mm3 (1.96-9.15); SEG NEUTROPHILS PERCENT MAN 65 % (41-73); TOTAL CELLS COUNTED 100
--- NOTE | 2019-01-22 06:04 | NUR ---
pt was awake saying he had dry mouth HOB up and drank from straw without obvious s/sx aspiration. oxygen sat 76 on room air this am 95 % on 2 l nc. continues with oral temp greater than 100.0. PT has normal WBC this AM creatinine 3.56 after 2 days of dialysis. He recieved 2 units of PRBC with dialysis yesterday and said he was feeling a little better. Lung sounds continue coarse and he has occasional loose nonprod cough. Family was in and supportive yesterday.
[2019-01-22 08:35] LABS: Vancomycin, Trough 10.7 ug/mL (5.0-10.0)
--- NOTE | 2019-01-22 10:41 | NUR ---
BLADDER SCANNED PER ORDERS, 70ML DETECTED.
--- NOTE | 2019-01-22 16:31 | NUR ---
SHIFT SUMMARY. A&OX2, INTERMITTENT CONFUSION, LETHARGIC MOST OF THE SHIFT. PT RECIEVED DIALYSIS TODAY. PT DENIES PAIN, SOB, N/V. PT ON 2L HUMIDIFIED O2 NC. PT RECIEVED 1G VANCO IV PER DR. COOLEY'S ORDERS. PT RECIEVED SHOWER, HAD ONE INCONTINENT BOWEL. BLADDER SCAN REVEALED 70ML VOLUME. FAMILY IN TO VISIST THIS MORNING. NO OTHER CHANGES.
--- NOTE | 2019-01-22 19:12 | NUR ---
183 INCREASING DYSPNEA AND O2 REQUIREMENTS, FRRM 2L O2 TO 4L O2 NC , RR 26-30. FEBRILE, T102.1. PT MORE LETHARGIC AND CONFUSED, LUNGS WITH FINE CRACKLES IN THE BASES. PT STATING, "I'M NOT GOING TO MAKE IT," AND REPEATING "BREEZY" OVER AND OVER AGAIN. PT'S FAMILY REPORT THAT BREEZY IS ONE OF THE PT'S SON'S THAT COMMITTED SUICIDE LAST YEAR. DR. QUINTERO NOTIFIED OF THE ABOVE, HE SPOKE WITH DR. DOTSON AND DR. DOTSON ARRIVED TO PT'S ROOM AT [address] DOTSON THEN SPOKE WITH DR. COOLEY ON THE PHONE, DR. COOLEY REPORTED TO DR. DOTSON THAT HE WOULD PLACE ADDITIONAL ORDERS. FAMILY AT BEDSIDE AND AGREED WITH PLAN OF CARE.
[2019-01-22 19:58] LABS: PCO2 Arterial 43.6 mmHg (35-45); PO2 Arterial 63.7 mmHg (80-100); pH Blood Arterial 7.53 (7.35-7.45)
--- NOTE | 2019-01-22 20:38 | NUR ---
lt wrist iv was puylled by pt and new iv restarted rt ac. IV not present
--- NOTE | 2019-01-22 20:50 | NUR ---
IV LEVAQUIN AND IV STEROIDS HAVE NOT BEEN ADMINISTERED YET. associate professor plant pathology at bedside running fluid removal process for suspected pulmonary edema. human resources intern trinh set of blood cultures from rt upper chest vascath and sent to lab. explained plan of care to Family. Son and Daughter in and supportive. Pharmacy updated on delay in administering levaquin and steroid due to currently removing fluid from PT. Continues with diminished lung sounds with coarse cracles rt lung base, 4 l nc and hob up. Temp improved to 99.8 oral after tylenol given.
--- NOTE | 2019-01-22 22:57 | NUR ---
PT JUST FINISHED THE DIALYSIS FLUID REMOVAL AND TOLERATED WELL WILL START iv LEVAQUIN SOON DIALYSIS EQUIPMENT REMOVED FROM ROOM AND GIVE IV STEROID. 2.5 L FLUID REMOVED DURING PROCEDURE PER ELECTRIC BLANKET WIRER DELONDA REPORT. FAMILY AT BEDSIDE.
--- NOTE | 2019-01-23 00:37 | NUR ---
rt ac iv with some leakage. Will establish new access site and dc this site.
[2019-01-23 04:47] LABS: Hematocrit 31.2 % (37.0-53.0); Mean Corpuscular HGB 33.6 pg (26.0-34.0); Mean Corpuscular HGB Conc 32.1 g/dL (31.5-36.5); Mean Corpuscular Volume 105 fL (80-100); Mean Platelet Volume 10.5 fL (9.1-12.4); Platelet Count 57 K/mm3 (150-400); RDW Coefficient Variation 17.8 % (11.7-14.2); RDW Standard Deviation 68.7 fL (35.1-46.3); Red Blood Cell Count 2.98 M/mm3 (4.30-5.90); White Blood Cell Count 4.26 K/mm3 (4.00-11.30)
[2019-01-23 05:01] LABS: Albumin, Blood 2.5 g/dL (3.4-5.0); Anion Gap 4 mmol/L (6-16); Blood Urea Nitrogen 28 mg/dL (8-24); CO2, Blood 34 mmol/L (21-32); Calcium, Blood 7.9 mg/dL (8.5-10.1); Chloride, Blood 99 mmol/L (98-108); Creatinine, Blood 3.51 mg/dL (0.60-1.20); Glomerular Filtration Rate 18 (60-); Glucose, Blood 130 mg/dL (70-99); Magnesium, Blood 2.2 mg/dL (1.6-2.4); Phosphorus, Blood 4.7 mg/dL (2.5-4.9); Potassium, Blood 4.4 mmol/L (3.5-5.5); Sodium, Blood 137 mmol/L (136-145)
[2019-01-23 05:34] LABS: BAND PERCENT MAN 19 % (0-8); BASOPHILS PERCENT MAN 0 % (0-2); EOSINOPHILS PERCENT MAN 0 % (0-6); LYMPHOCYTES ABSOLUTE MAN 0.29 K/mm3 (0.84-5.20); LYMPHOCYTES PERCENT MAN 7 % (21-46); METAMYELOCYTE ABSOLUTE MAN 0.04 K/mm3 (0.00-0.00); METAMYELOCYTE PERCENT MAN 1 % (0-0); MONOCYTES ABSOLUTE MAN 0.08 K/mm3 (0.16-1.47); MONOCYTES PERCENT MAN 2 % (4-13); NEUTROPHILS ABSOLUTE MAN 3.83 K/mm3 (1.96-9.15); SEG NEUTROPHILS PERCENT MAN 71 % (41-73); TOTAL CELLS COUNTED 100
--- NOTE | 2019-01-23 06:26 | NUR ---
PT WAS FEVERISH AND HYPOXIC AT SHIFT CHANGE dAY RN HAD INCREASED OXYGEN TO 4 L NC AND CALLED DR Donald who came to bedside and consulted with DR Danielle on how to treat PT . PT given PUFF therapy by hedis registered nurse rn and 2.5 l removed in PM. PT had full dialysis in AM yesterday. PT feeling better after fluid removed via vascath rt upper chest. Temp returned to normal and BP normalized. PT has 94% o2 sat this AM on room air. He had nasal cannula present but it was not in nares. Resumed 2 l nc and PT up to BSC and had BM> Sat at bedside for about an hourthen called for assist to lay back down. after sitting up with le dependent le dusky purple and cool. Family was in multiple times during shift and suportive. PT has DNR status and has been on Hospice in past. Pallative care consult rx by . Creatinine greater than 3.5. Continues on IV antibiotics to treat infection. no void bladder scan 73.
--- NOTE | 2019-01-23 18:34 | NUR ---
SHIFT SUMMMARY. PT MORE ALERT AND TOLERATING ACTIVITY THIS SHIFT. BREATHING HAS IMPROVED. PT SPO2 94% ON RA AT THIS TIME. PT DENIES PAIN, SOB, N/V. POOR PO INTAKE, PT REPORTS NOT LIKING THE HOSPITAL FOOD, FAMILY HAS BROUGHT IN ONE MEAL PER DAY THAT PT CAN TOLERATE. FAMILY AT BEDSIDE INTERMITTENTLY THROUGHOUT SHIFT AND AGREE WITH PLAN OF CARE. NO NEW CHANGES OR CONCERNS.
[2019-01-24 04:58] LABS: Hematocrit 33.6 % (37.0-53.0); Hemoglobin 10.7 g/dL (13.5-17.5); Mean Corpuscular HGB 33.1 pg (26.0-34.0); Mean Corpuscular HGB Conc 31.8 g/dL (31.5-36.5); Mean Corpuscular Volume 104 fL (80-100); Mean Platelet Volume 11.2 fL (9.1-12.4); Platelet Count 68 K/mm3 (150-400); RDW Coefficient Variation 17.1 % (11.7-14.2); RDW Standard Deviation 65.2 fL (35.1-46.3); Red Blood Cell Count 3.23 M/mm3 (4.30-5.90); White Blood Cell Count 4.41 K/mm3 (4.00-11.30)
[2019-01-24 05:19] LABS: Albumin, Blood 2.8 g/dL (3.4-5.0); Anion Gap 10 mmol/L (6-16); Blood Urea Nitrogen 41 mg/dL (8-24); Bun/Creatinine Ratio 13.2 (12.0-20.0); CO2, Blood 30 mmol/L (21-32); Calcium, Blood 8.5 mg/dL (8.5-10.1); Chloride, Blood 99 mmol/L (98-108); Creatinine, Blood 3.11 mg/dL (0.60-1.20); Glomerular Filtration Rate 21 (60-); Glucose, Blood 104 mg/dL (70-99); Magnesium, Blood 2.4 mg/dL (1.6-2.4); Phosphorus, Blood 4.3 mg/dL (2.5-4.9); Potassium, Blood 3.7 mmol/L (3.5-5.5); Sodium, Blood 139 mmol/L (136-145)
--- NOTE | 2019-01-24 05:27 | NUR ---
SHIFT SUMMARY PT HAS HAD NO ACUTE EVENTS OVER NIGHT. PT DID NOT SLEEP WELL. OFFERS NO C/O'S. DENIES ANY SHORTNESS OF BREATH, WILL CONTINUE TO MONITOR.
[2019-01-24 05:32] LABS: BAND PERCENT MAN 9 % (0-8); BASOPHILS ABSOLUTE MAN 0.04 K/mm3 (0.00-0.23); BASOPHILS PERCENT MAN 1 % (0-2); EOSINOPHILS PERCENT MAN 0 % (0-6); LYMPHOCYTES ABSOLUTE MAN 0.39 K/mm3 (0.84-5.20); LYMPHOCYTES PERCENT MAN 9 % (21-46); METAMYELOCYTE ABSOLUTE MAN 0.08 K/mm3 (0.00-0.00); METAMYELOCYTE PERCENT MAN 2 % (0-0); MONOCYTES ABSOLUTE MAN 0.08 K/mm3 (0.16-1.47); MONOCYTES PERCENT MAN 2 % (4-13); MYELOCYTE ABSOLUTE MAN 0.04 K/mm3 (0.00-0.00); MYELOCYTE PERCENT MAN 1 % (0-0); NEUTROPHILS ABSOLUTE MAN 3.74 K/mm3 (1.96-9.15); SEG NEUTROPHILS PERCENT MAN 76 % (41-73); TOTAL CELLS COUNTED 100
--- NOTE | 2019-01-24 10:36 | NUR ---
PATIENT IS OUT OF ROOM. TRANSPORTED TO DIALYSIS AT 0900.
[2019-01-24] MEDS ORDERED: ROPI.25 PO (16:31)
--- NOTE | 2019-01-24 17:00 | NUR ---
PT DISCHARGED AT 1700
[2019-01-26 10:08] LABS: HEPARIN INDUCED PLATELET AB 0.219 OD (0.000-0.400)
== END 2019-01-24 17:00 | disposition home or self-care (01) | DRG 871 ==
LOC: ER 09:51 → MEDS 11:12
PROVIDERS: Emergency Medicine; Internal Medicine; Internal Medicine Nephrology; ADMIT Internal Medicine
PROC: 30233N1 Transfusion of Nonautologous Red Blood Cells into Peripheral Vein, Percutaneous Approach (ICD-10-PCS; principal; 2019-01-20)
PROC: 5A1D70Z Performance of Urinary Filtration, Intermittent, Less than 6 Hours Per Day (ICD-10-PCS; 2019-01-20)
PROC: 5A1D70Z Performance of Urinary Filtration, Intermittent, Less than 6 Hours Per Day (ICD-10-PCS; 2019-01-21)
PROC: 5A1D70Z Performance of Urinary Filtration, Intermittent, Less than 6 Hours Per Day (ICD-10-PCS; 2019-01-22)
PROC: 5A1D70Z Performance of Urinary Filtration, Intermittent, Less than 6 Hours Per Day (ICD-10-PCS; 2019-01-23)
PROC: 5A1D70Z Performance of Urinary Filtration, Intermittent, Less than 6 Hours Per Day (ICD-10-PCS; 2019-01-23)
PROC: 5A1D70Z Performance of Urinary Filtration, Intermittent, Less than 6 Hours Per Day (ICD-10-PCS; 2019-01-24)
DX: A41.50 Gram-negative sepsis, unspecified (principal); J96.21 Acute and chronic respiratory failure with hypoxia; G92 Toxic encephalopathy; N18.6 End stage renal disease; E43 Unspecified severe protein-calorie malnutrition; N39.0 Urinary tract infection, site not specified; N17.9 Acute kidney failure, unspecified; Z99.2 Dependence on renal dialysis; D63.1 Anemia in chronic kidney disease; I48.2 Chronic atrial fibrillation; I95.9 Hypotension, unspecified; D75.82 Heparin induced thrombocytopenia (HIT); Z68.25 Body mass index [BMI] 25.0-25.9, adult; E21.3 Hyperparathyroidism, unspecified; J44.9 Chronic obstructive pulmonary disease, unspecified; J84.10 Pulmonary fibrosis, unspecified; Z87.891 Personal history of nicotine dependence; Z66 Do not resuscitate; F03.90 Unspecified dementia, unspecified severity, without behavioral disturbance, psychotic disturbance, mood disturbance, and anxiety; E87.70 Fluid overload, unspecified; R65.20 Severe sepsis without septic shock
CPT/HCPCS: 36415; 36430; 36600; 51701; 70450; 71045; 76770; 80053; 80069; 80202; 81001; 82803; 83605; 83735; 84100; 84145; 85014; 85018; 85025; 86022; 86850; 86900; 86901; 86923; 87040; 87086; 93005; 93010; 94640; 94760; 94762; 96361-59; 96365-59; 97161; 97530; 99285-25; J0696; J0881; J1644; J1956; J2930; J3370; J7030; J7040; P9016; P9046